=== PATIENT | male | born 1985 | race Caucasian/White ===

== ENCOUNTER 2024-05-18 20:37 | Emergency (ER) | payer MEDICAID ==
[~2024-05-18] VITALS: Ht 172.7 cm; Wt 68.0 kg
[2024-05-18 20:47] VITALS: BP_SYST 131; PULSE 93; RESP 20; TEMP 97.8; O2SAT 99
[2024-05-18 21:10] VITALS: BP_SYST 131; PULSE 93; RESP 20; TEMP 97.8; O2SAT 99
== END 2024-05-18 21:15 ==
LOC: SED 20:37
DX: S61.411A Laceration without foreign body of right hand, initial encounter (principal); F17.210 Nicotine dependence, cigarettes, uncomplicated; W26.8XXA Contact with other sharp object(s), not elsewhere classified, initial encounter; Y93.89 Activity, other specified; Y92.89 Other specified places as the place of occurrence of the external cause; Y99.8 Other external cause status
CPT/HCPCS: 99283